=== PATIENT | male | born 1950 | race American Indian/Alaskan Native ===

== ENCOUNTER 2021-01-06 19:11 | Emergency (ER) | payer MEDICARE ==
[2021-01-06] MEDS ORDERED: Sodium Chloride 0.9% 2.5 ML Syringe FLUSH PRN (20:40)
[2021-01-06] MEDS ORDERED: Sodium Chloride 0.9% 10 ML Syringe FLUSH PRN (20:40)
[2021-01-06] MEDS ORDERED: Sodium Chloride 0.9% 1,000 ML IV ONE (20:41)
[2021-01-06 21:32] LABS: BLOOD UREA NITROGEN,BUN 38 mg/dL (7.0-18.0); CARBON DIOXIDE,CO2 29.4 mmol/L (21.0-32.0); CHLORIDE,CL 104 mmol/L (98-107); GLUCOSE RANDOM 201 mg/dL (74-106); POTASSIUM,K 4.5 mmol/L (3.5-5.1); SODIUM,NA 143 mmol/L (136-148)
[2021-01-06] MEDS ORDERED: Iopamidol 755 MG/ML 500 ML Multipack Bottle IVPUSH STA (23:01)
--- NOTE | 2021-01-06 23:15 | CT ---
Indication: Chest pain. Shortness of breath. Technique: Multiple contiguous axial images were obtained from the thoracic inlet through the upper abdomen after the intravenous administration of 100 cc Isovue 370. Please note that all CT scans at this facility use dose modulation, iterative reconstruction, and/or weight-based dosing when appropriate to reduce radiation dose to as low as reasonably achievable. Comparison: None Findings: The heart is mildly enlarged. No pericardial effusion is identified. No pulmonary embolism is identified. Aorta is normal in caliber. No mediastinal, hilar, or axillary lymphadenopathy is identified. Minimal patchy ground-glass opacities are identified. In the left lower lobe, calcified granuloma is identified. No infiltrate, pleural effusion, or pneumothorax is identified. The visualized portions of the liver, spleen, pancreas, adrenals, and kidneys are grossly normal. Degenerative changes of the spine are identified. No lytic or blastic lesions are identified. Impression: No evidence of pulmonary embolism. Only minimal ground-glass opacities identified within the lungs. Please note that all CT scans at this facility use dose modulation, iterative reconstruction, and/or weight-based dosing when appropriate to reduce radiation dose to as low as reasonably achievable. Dictated by Julienne Hankins MD @ 01/06/2021 11:13:02 PM (Electronically Signed)
[2021-01-06] MEDS ORDERED: methylPREDNISolone Sodium Succinate 125 MG/2 ML SDV IVPUSH ONE (23:33)
[2021-01-06] MEDS ORDERED: Albuterol/Ipratropium 3.0-0.5 MG/3 ML Neb Soln NEB ONE (23:33)
[2021-01-06] MEDS ORDERED: Codeine/guaiFENesin 10-100 MG/5 ML Syrup 5 ML Cup PO ONE (23:39)
--- NOTE | 2021-01-06 23:39 | EDM.PDOC ---
ED HPI GENERAL MEDICAL PROBLEM - General Chief Complaint: Chest Pain Stated Complaint: COVID POSITIVE, CAN'T BREATHE, CHEST PAINS Time Seen by Provider: 01/06/21 19:46 - History of Present Illness INITIAL COMMENTS - FREE TEXT/NARRATIVE: HISTORY AND PHYSICAL: History of present illness: This is a 70-year-old gentleman with a history significant for cardiomyopathy, hypertension, diabetes, chronic renal disease, status post pace maker/defibrillator, who presents ER today secondary to signs and symptoms of worsening coronavirus infection. Patient reports that he was diagnosed with Covid approximately 8 days ago with symptoms starting approximately 10 days ago. Patient reports that he has been doing fairly well since his diagnosis however he has been having increasing cough and feels short of breath when he is coughing. Patient denies any recent fevers, shakes, chills. Patient denies any nausea, vomiting, diarrhea, dysuria, frequency, urgency. Patient denies any chest pain or discomfort but does have increasing shortness of breath with coughing. Patient denies any hemoptysis. Patient denies any melena or bright red blood per rectum. Patient reports he does not utilize any oxygen at home. Review of systems: As per history of present illness and below otherwise all systems reviewed and negative. Past medical history: As per history of present illness and as reviewed below otherwise noncontributory. Surgical history: As per history of present illness and as reviewed below otherwise noncontributory. Social history: No reported history of drug abuse. Family history: As per history of present illness and as reviewed below otherwise noncontributory. Physical exam: This patient was seen and evaluated during the 2019 SARS-CoV-2 novel coronavirus pandemic period. Community viral transmission is ongoing at time of this encounter and the emergency department is operating under pandemic response procedures. Constitutional: Patient is oriented to person, place, and time. Appears well-developed and well-nourished. No distress. HEENT: Moist mucous membranes Head: Normocephalic and atraumatic Eyes: Right eye exhibits no discharge. Left eye exhibits no discharge. No scleral icterus Neck: Normal range of motion. No tracheal deviation present. Cardiovascular: Normal rate and regular rhythm. Pulmonary: Effort normal, no respiratory distress. Abdominal: No distention Musculoskeletal: Normal range of motion Neurologic: Alert and oriented to person, place and time. Skin: [place], warm and dry. Psychiatric: Normal mood and affect. Behavior is normal. Judgment and thought content normal. Nursing note and vital signs have been reviewed Patient has an expiratory wheezing on exam. Diagnostics: CTA reveals no evidence of PE. Patient does have evidence of Covid pneumonia on CAT scan. CBC/CMP/troponin within normal limits. Patient's BUN and creatinine are slightly elevated but appear to be within patient's baseline range. EKG: January 06, 2021 at 7:29 PM As interpreted by ER physician: Parmjit: Nonspecific ST-T wave abnormalities QRS axis of -90 degrees. No evidence of ST elevation IN Paced rhythm at 75. Therapeutics: DuoNeb x1 Solu-Medrol 125 mg IV Assessment and plan: 70-year-old gentleman who presents ER today secondary to increased shortness of breath with increasing coughing when he lays flat and tries to sleep. Patient reports that is when he starts feeling short of breath when he is lying flat and try to get to sleep and starts coughing. Patient's CTA of his chest reveals no evidence of PE but does show evidence of Covid inflammation in his lungs. Patient's EKG reveals no evidence of ST elevation IN but does show a paced rhythm. Patient has been given a DuoNeb here in the ED and does feel much improved. Patient will be discharged home with prescription for prednisone and instructions to follow-up with his doctor in the next 1 to 2 days at least by phone. Reassessment at the time of disposition demonstrates that the patient is in no acute distress. The patient has remained stable throughout the entire ED visit and is without objective evidence for acute process requiring urgent intervention or hospitalization. The patient is stable for discharge, counseling is provided as documented above, discussed symptomatic treatment and specific conditions for return. I have spoken with the patient/caregiver and discussed todays findings, in addition to providing specific details for the plan of care. Questions are answered and there is agreement with the plan. Definitive disposition and diagnosis as appropriate pending reevaluation and review of above. Generalized Pain Score (Numeric/FACES): 6 - Related Data Allergies Allergy/AdvReac Type Severity Reaction Status Date / Time shellfish derived Allergy Hives Verified 07/19/13 13:24 Home Meds: Home Meds Fexofenadine/Pseudoephedrine [Fexofenadine-PSE ER 180-240] 1 each PO DAILY PRN 07/19/13 [History] Fluticasone Propionate [Flonase] 16 gm NS DAILY PRN 07/19/13 [History] Levothyroxine [Synthroid] 137 mcg PO ACBRK 02/23/14 [History] traZODone HCl [Trazodone HCl] 50 mg PO BEDTIME PRN 02/24/14 [History] Apixaban [Eliquis] 1 tab PO BID 01/06/21 [History] Esomeprazole [NexIUM] 1 tab PO DAILY 01/06/21 [History] Sacubitril/Valsartan [Entresto 97 mg-103 mg Tablet] 1 tab PO DAILY 01/06/21 [History] Simvastatin 1 tab PO DAILY 01/06/21 [History] Torsemide 2 tab PO BID 01/06/21 [History] carvediloL [Carvedilol] 1.5 tab PO BID 01/06/21 [History] Past Medical History HEENT History: Reports: None Cardiovascular History: Reports: Afib, Cardiomyopathy Respiratory History: Reports: None Gastrointestinal History: Reports: None Musculoskeletal History: Reports: None Neurological History: Reports: None Psychiatric History: Reports: None Endocrine/Metabolic History: Reports: None Hematologic History: Reports: None Immunologic History: Reports: None Oncologic (Cancer) History: Reports: None Dermatologic History: Reports: None - Infectious Disease History Infectious Disease History: Reports: None - Past Surgical History Head Surgeries/Procedures: Reports: None HEENT Surgical History: Reports: None Cardiovascular Surgical History: Reports: AICD, Cardiac Ablation Oncologic Surgical History: Reports: None Social & Family History - Family History HEENT: Reports: None - Tobacco Use Tobacco Use Status *Q: Never Tobacco User - Caffeine Use Caffeine Use: Reports: Coffee - Recreational Drug Use Recreational Drug Use: No ED ROS GENERAL - Review of Systems Review Of Systems: See Below ED EXAM, GENERAL - Physical Exam Exam: See Below Course - Vital Signs Last Recorded V/S: Last Vital Signs Temp 97 F 01/06/21 21:25 Pulse 74 01/06/21 22:56 Resp 18 01/06/21 22:56 BP 111/74 01/06/21 22:56 Pulse Ox 96 01/06/21 22:56 - Orders/Labs/Meds Orders: Active Orders 24 hr Category Date Time Status Albuterol/Ipratropium [DuoNeb 3.0-0.5 MG/3 ML] Med 01/06/21 23:33 Once 3 ml NEB ONETIME ONE Sodium Chloride 0.9% [Saline Flush] Med 01/06/21 20:40 Active 10 ml FLUSH ASDIRECTED PRN Sodium Chloride 0.9% [Saline Flush] Med 01/06/21 20:40 Active 2.5 ml FLUSH ASDIRECTED PRN methylPREDNISolone Sod Succ [Solu-MEDROL] Med 01/06/21 23:33 Once 125 mg IVPUSH ONETIME ONE Saline Lock Insert [OM.PC] Stat Oth 01/06/21 20:40 Ordered Medication Orders Sodium Chloride (Sodium Chloride 0.9% 10 Ml Syringe) 10 ml FLUSH ASDIRECTED PRN PRN Reason: Keep Vein Open Last Admin: 01/06/21 21:07 Dose: 10 ml Documented by: ADILSON Sodium Chloride (Sodium Chloride 0.9% 2.5 Ml Syringe) 2.5 ml FLUSH ASDIRECTED PRN PRN Reason: Keep Vein Open Last Admin: 01/06/21 21:22 Dose: 2.5 ml Documented by: ADILSON Labs: Laboratory Tests 01/06/21 01/06/21 01/06/21 Range/Units 21:00 21:00 21:00 WBC 4.53 (4.0-11.0) K/uL RBC 4.87 (4.50-5.90) M/uL Hgb 15.9 (13.0-17.0) g/dL Hct 46.3 (38.0-50.0) % MCV 95.1 (80.0-98.0) fL MCH 32.6 H (27.0-32.0) pg MCHC 34.3 (31.0-37.0) g/dL RDW Std Deviation 46.1 (28.0-62.0) fl RDW Coeff of Yassine 13 (11.0-15.0) % Plt Count 155 (150-400) K/uL MPV 10.30 (7.40-12.00) fL Neut % (Auto) 62.3 (48.0-80.0) % Lymph % (Auto) 22.1 (16.0-40.0) % Josephine % (Auto) 14.1 (0.0-15.0) % Eos % (Auto) 1.3 (0.0-7.0) % Baso % (Auto) 0.2 (0.0-1.5) % Neut # (Auto) 2.8 (1.4-5.7) K/uL Lymph # (Auto) 1.0 (0.6-2.4) K/uL Josephine # (Auto) 0.6 (0.0-0.8) K/uL Eos # (Auto) 0.1 (0.0-0.7) K/uL Baso # (Auto) 0.0 (0.0-0.1) K/uL Nucleated RBC % 0.0 /100WBC Nucleated RBCs # 0 K/uL D-Dimer, Quantitative 0.19 (0.0-0.50) mg/L FEU Sodium 143 (136-148) mmol/L Potassium 4.5 (3.5-5.1) mmol/L Chloride 104 (98-107) mmol/L Carbon Dioxide 29.4 (21.0-32.0) mmol/L BUN 38 H (7.0-18.0) mg/dL Creatinine 1.9 H (0.8-1.3) mg/dL Est Cr Clr Drug Dosing 37.89 mL/min Estimated GFR (MDRD) 35.3 ml/min Glucose 201 H (74-106) mg/dL Calcium 8.3 L (8.5-10.1) mg/dL Total Bilirubin 0.4 (0.2-1.0) mg/dL AST 14 L (15-37) IU/L ALT 24 (14-63) IU/L Alkaline Phosphatase 61 (46-116) U/L Troponin I < 0.050 (0.000-0.056) ng/mL B-Natriuretic Peptide (<100) PG/ML Total Protein 7.3 (6.4-8.2) g/dL Albumin 3.4 (3.4-5.0) g/dL Globulin 3.9 (2.6-4.0) g/dL Albumin/Globulin Ratio 0.9 (0.9-1.6) 01/06/21 Range/Units 21:00 WBC (4.0-11.0) K/uL RBC (4.50-5.90) M/uL Hgb (13.0-17.0) g/dL Hct (38.0-50.0) % MCV (80.0-98.0) fL MCH (27.0-32.0) pg MCHC (31.0-37.0) g/dL RDW Std Deviation (28.0-62.0) fl RDW Coeff of Yassine (11.0-15.0) % Plt Count (150-400) K/uL MPV (7.40-12.00) fL Neut % (Auto) (48.0-80.0) % Lymph % (Auto) (16.0-40.0) % Josephine % (Auto) (0.0-15.0) % Eos % (Auto) (0.0-7.0) % Baso % (Auto) (0.0-1.5) % Neut # (Auto) (1.4-5.7) K/uL Lymph # (Auto) (0.6-2.4) K/uL Josephine # (Auto) (0.0-0.8) K/uL Eos # (Auto) (0.0-0.7) K/uL Baso # (Auto) (0.0-0.1) K/uL Nucleated RBC % /100WBC Nucleated RBCs # K/uL D-Dimer, Quantitative (0.0-0.50) mg/L FEU Sodium (136-148) mmol/L Potassium (3.5-5.1) mmol/L Chloride (98-107) mmol/L Carbon Dioxide (21.0-32.0) mmol/L BUN (7.0-18.0) mg/dL Creatinine (0.8-1.3) mg/dL Est Cr Clr Drug Dosing mL/min Estimated GFR (MDRD) ml/min Glucose (74-106) mg/dL Calcium (8.5-10.1) mg/dL Total Bilirubin (0.2-1.0) mg/dL AST (15-37) IU/L ALT (14-63) IU/L Alkaline Phosphatase (46-116) U/L Troponin I (0.000-0.056) ng/mL B-Natriuretic Peptide 226 H (<100) PG/ML Total Protein (6.4-8.2) g/dL Albumin (3.4-5.0) g/dL Globulin (2.6-4.0) g/dL Albumin/Globulin Ratio (0.9-1.6) Meds: Medications Generic Name Dose Route Start Last Admin Trade Name Freq PRN Reason Stop Dose Admin Sodium Chloride 10 ml 01/06/21 20:40 01/06/21 21:07 Sodium Chloride 0.9% 10 Ml Syringe FLUSH 10 ml ASDIRECTED PRN Administration Keep Vein Open Sodium Chloride 2.5 ml 01/06/21 20:40 01/06/21 21:22 Sodium Chloride 0.9% 2.5 Ml Syringe FLUSH 2.5 ml ASDIRECTED PRN Administration Keep Vein Open Discontinued Medications Generic Name Dose Route Start Last Admin Trade Name Freq PRN Reason Stop Dose Admin Sodium Chloride 1,000 mls @ 999 mls/hr 01/06/21 20:41 01/06/21 21:06 Normal Saline IV 01/06/21 21:41 999 mls/hr .Bolus ONE Administration Iopamidol 50 ml 01/06/21 23:01 01/06/21 23:02 Iopamidol 755 Mg/Ml 500 Ml Multipack Bottle IVPUSH 01/06/21 23:02 50 ml ONETIME STA Administration Departure - Departure Time of Disposition: 23:39 Disposition: Home, Self-Care 01 Condition: Good Clinical Impression: Pneumonia due to COVID-19 virus, Shortness of breath - Discharge Information Instructions: Shortness of Breath, Adult, [id number], 10 Things You Can Do to Manage Your COVID-19 Symptoms at Home - [facility] (10/26/2020) Referrals: PCP,None [Primary Care Provider] - Additional Instructions: You were seen and evaluated in the ER today secondary to shortness of breath related to your Covid infection. Your CT scan reveals no evidence of blood clots or aneurysms but does show some inflammation in your lungs consistent with inflammation from coronavirus. You have been given a DuoNeb here in the ED. You will also be given a dose of steroids and a prescription for prednisone to take at home. I will also write a prescription for Robitussin-AC which has codeine in it to help you with your cough at night. Please make an appointment see your family doctor in the next 1 to 2 days for reevaluation. The following information is given to patients seen in the emergency department who are being discharged to home. This information is to outline your options for follow-up care. We provide all patients seen in our emergency department with a follow-up referral. The need for follow-up, as well as the timing and circumstances, are variable depending upon the specifics of your emergency department visit. If you don't have a primary care physician on staff, we will provide you with a referral. We always advise you to contact your personal physician following an emergency department visit to inform them of the circumstance of the visit and for follow-up with them and/or the need for any referrals to a consulting specialist. The emergency department will also refer you to a specialist when appropriate. This referral assures that you have the opportunity for follow-up care with a specialist. All of these measure are taken in an effort to provide you with optimal care, which includes your follow-up. Under all circumstances we always encourage you to contact your private physician who remains a resource for coordinating your care. When calling for follow-up care, please make the office aware that this follow-up is from your recent emergency room visit. If for any reason you are refused follow-up, please contact the [facility] Emergency Department at and asked to speak to the emergency department charge nurse. [facility] [address] [place] [address] [id number] [address] Sepsis Event Note (ED) - Focused Exam Vital Signs: Vital Signs Temp Pulse Resp BP Pulse Ox 01/06/21 22:56 74 18 111/74 96 01/06/21 21:25 97 F 75 18 104/65 97 01/06/21 19:16 97.6 F 70 20 103/63 97 - My Orders Last 24 Hours: My Active Orders 01/06/21 20:40 Sodium Chloride 0.9% [Saline Flush] 10 ml FLUSH ASDIRECTED PRN Sodium Chloride 0.9% [Saline Flush] 2.5 ml FLUSH ASDIRECTED PRN Saline Lock Insert [OM.PC] Stat 01/06/21 23:33 Albuterol/Ipratropium [DuoNeb 3.0-0.5 MG/3 ML] 3 ml NEB ONETIME ONE methylPREDNISolone Sod Succ [Solu-MEDROL] 125 mg IVPUSH ONETIME ONE - Assessment/Plan Last 24 Hours: My Active Orders 01/06/21 20:40 Sodium Chloride 0.9% [Saline Flush] 10 ml FLUSH ASDIRECTED PRN Sodium Chloride 0.9% [Saline Flush] 2.5 ml FLUSH ASDIRECTED PRN Saline Lock Insert [OM.PC] Stat 01/06/21 23:33 Albuterol/Ipratropium [DuoNeb 3.0-0.5 MG/3 ML] 3 ml NEB ONETIME ONE methylPREDNISolone Sod Succ [Solu-MEDROL] 125 mg IVPUSH ONETIME ONE
[2021-01-07 00:05] VITALS: BP 112/67; PULSE 75
== END 2021-01-07 00:04 | disposition home or self-care (01) ==
LOC: MW.ED 19:11
DX: U07.1 COVID-19 (principal); J12.82 Pneumonia due to coronavirus disease 2019; I12.9 Hypertensive chronic kidney disease with stage 1 through stage 4 chronic kidney disease, or unspecified chronic kidney disease; E11.22 Type 2 diabetes mellitus with diabetic chronic kidney disease; N18.9 Chronic kidney disease, unspecified; I48.91 Unspecified atrial fibrillation; Z91.013 Allergy to seafood; Z79.01 Long term (current) use of anticoagulants; Z79.899 Other long term (current) drug therapy
CPT/HCPCS: 36415; 71275; 80053; 83880; 84484; 85025; 85379; 93005; 96374; 99285; A9270; J2930; J7030; Q9967; J7620-GY

== ENCOUNTER 2021-01-10 09:02 | Inpatient (IN) | payer MEDICARE ==
[2021-01-10] MEDS ORDERED: Aspirin 81 MG Tab.Chew PO ONE (09:06)
[2021-01-10] MEDS ORDERED: Sodium Chloride 0.9% 10 ML Syringe FLUSH PRN (09:07)
[2021-01-10] MEDS ORDERED: Sodium Chloride 0.9% 2.5 ML Syringe FLUSH PRN (09:07)
[2021-01-10 09:59] LABS: BLOOD UREA NITROGEN,BUN 53 mg/dL (7.0-18.0); CARBON DIOXIDE,CO2 27.3 mmol/L (21.0-32.0); CHLORIDE,CL 100 mmol/L (98-107); GLUCOSE RANDOM 410 mg/dL (74-106); SODIUM,NA 137 mmol/L (136-148)
--- NOTE | 2021-01-10 10:07 | CR ---
INDICATION: Chest Pain COMPARISON: CT angio chest January 06, 2021 and chest radiograph July 19, 2013 FINDINGS AND IMPRESSION: Redemonstration of left chest AICD. There are low lung volumes bilaterally. Mild cardiomegaly with crowding of the pulmonary vasculature which may be in part due to low lung volumes. There is no pulmonary edema. Redemonstration of mild consolidation within the right lung base may represent atelectasis. Mild patchy airspace disease in the left lower lobe was better seen on comparison chest CT. There is probably slight ground-glass opacity within the right lung base which may represent atelectasis versus pneumonia. Dictated by Tressa Baldwin MD @ 01/10/2021 10:05:55 AM (Electronically Signed)
[2021-01-10] MEDS ORDERED: Albuterol/Ipratropium 3.0-0.5 MG/3 ML Neb Soln NEB ONE ×4 (10:32→12:14)
[2021-01-10] MEDS ORDERED: Lactated Ringers 1,000 ML IV SCH (11:00)
[2021-01-10] MEDS ORDERED: Magnesium Sulfate (4.06 MEQ/ML) 5 GM/10 ML SDV IV STA (12:12)
[2021-01-10] MEDS ORDERED: Magnesium Sulfate/Water 50 ML IV ONE (12:15)
--- NOTE | 2021-01-10 12:54 | PCM.EKG ---
#1 Interpretation EKG Date: 01/10/21 Time: 09:05 Rhythm: Other (vetricular paced rhythm) Rate (Beats/Min): 75 Comparison: No Change (01/06/21) EKG Interpretation Comments: Ventricular Paced Rhythm
[2021-01-10] MEDS ORDERED: Dexamethasone 4 MG/ML SDV IVPUSH ONE (13:06)
[2021-01-10] MEDS ORDERED: Albuterol 0.083% 2.5 MG/3 ML Neb Soln ONE (15:44)
--- NOTE | 2021-01-10 15:58 | EDM.PDOC ---
ED HPI GENERAL MEDICAL PROBLEM - General Chief Complaint: Chest Pain Stated Complaint: SOB, CHEST PAIN Time Seen by Provider: 01/10/21 09:08 - History of Present Illness INITIAL COMMENTS - FREE TEXT/NARRATIVE: CHIEF COMPLAINT(S): Chest discomfort and shortness of breath HISTORY OF PRESENT ILLNESS: This is a 70-year-old man with a past medical history of end-stage heart failure who was offered LVAD versus heart transplant who refused any recent diagnosis of COVID-19 who comes to the emergency department with a chief complaint of chest discomfort and shortness of breath. Patient states that he was recently diagnosed with COVID-19. He states that he feels some shortness of breath and cough. He states that he does have a history of asthma and has been using a nebulizer treatment at home however it does not seem to be helping. He states that he feels chest discomfort throughout his entire anterior chest which he describes as tightening. He denies any productive cough, chest pain, syncope. He denies any recent travel, recent surgery or prior history of DVT or PE. He states that he comes to the emergency department for continued shortness of breath. REVIEW OF SYSTEMS: Constitutional: Denies fever, chills. Eyes: Denies eye pain Ears, Nose, Mouth, & Throat: Denies earache Cardiovascular: Positive for chest discomfort Respiratory: Positive for shortness of breath and nonproductive cough Gastrointestinal: Denies Nausea, vomiting, diarrhea, hematochezia. Genitourinary: Denies hematuria Skin:Denies a rash MSK: Denies joint pain Neurological: Denies blurred vision Psychiatric: Denies depression PAST MEDICAL HISTORY: As per history of present illness and as reviewed below otherwise noncontributory. SURGICAL HISTORY: As per history of present illness and as reviewed below otherwise noncontributory. SOCIAL HISTORY: As per history of present illness and as reviewed below otherwise noncontributory. FAMILY HISTORY: As per history of present illness and as reviewed below otherwise noncontributory. EXAMINATION OF ORGAN SYSTEMS/BODY AREAS: Constitutional: Blood pressure is 106/60, heart rate 71, respiratory rate 16 with an oxygen saturation of 95% on room air. Temperature 36.2. General: Elderly man who is in a moderate amount of respiratory distress Psychiatric: Appropriate mood and affect. Eyes: No scleral icterus or conjunctival erythema ENMT: Dry mucous membranes. No pharyngeal erythema. No stridor, drooling, trismus Cardiovascular: Regular, rate, and rhythm. No gallops, murmurs, or rubs. Bilateral upper extremity pulses symmetric and intact. No peripheral edema. No JVD. Respiratory: The patient is tachypneic with bilateral inspiratory and expiratory wheezing. Wheezing can be heard audibly. Speaking in full sentences. No crackles noted. Gastrointestinal: Soft, non-tender, non-distended. Normoactive bowel sounds Genitourinary: No suprapubic tenderness Musculoskeletal: Normal range of motion. Skin: No lesions or abrasions. Neurological: Alert, GCS 15 MEDICAL DECISION MAKING AND COURSE IN THE ED WITH INTERPRETATION/REVIEW OF DIAGNOSTIC STUDIES: This is a 70-year-old man with a past medical history of end-stage heart failure, asthma, and recent diagnosis of COVID-19 who comes to the emergency department with continued shortness of breath and nonproductive cough with some chest discomfort who has some inspiratory and expiratory wheezing who is tachypneic. The patient has been on steroid therefore we will forego steroids at this time. We did obtain an EKG which was unremarkable and unchanged from prior. We will provide the patient with 3 DuoNeb treatments, dexamethasone 6 mg IV given the COVID-19 and 2 g of magnesium. We will reevaluate after this. Will obtain a cardiac work-up including CBC, CMP, BNP, Covid and a chest x-ray. At this time differential does include pneumonia, ACS, heart failure exacerbation, asthma exacerbation. We will reevaluate after DuoNeb treatments. Cardiac monitoring at this time did reveal sinus rhythm and pulse oximetry with good waveform was 94 to 95% on room air. Laboratory: CBC is unremarkable. CMP reveals elevated BUN of 53 and a creatinine of 1.8. Hyperglycemia 410 likely secondary to demargination secondary to steroid use, hypocalcemia at 7.9. Troponin is negative. BNP is elevated at 552 which is not much more than prior. Covid is positive. The radiological images were viewed by myself along with reading the report from the radiologist. Chest x-ray reveals redemonstration of left chest AICD. Low lung volumes bilaterally. Mild cardiomegaly with crowding of the pulmonary vasculature but there is no pulmonary edema. Redemonstration of mild consolidation within the right lung base. Mild patchy airspace disease in the left lower lobe. On reevaluation after DuoNeb treatments the patient continued to wheeze and appeared to be tachypneic. His pulse oximetry continued to remain stable. Given the patient's work of breathing and wheezing I did perform a bedside cardiac ultrasound to evaluate for any right heart strain, pulmonary edema. Bedside cardiac ultrasound with lung 2 views of the heart were obtained there was no evidence of pericardial effusion. Ejection fraction is significantly reduced. There was no evidence of right heart strain. There were no B-lines bilaterally. Given that there were no B-lines bilaterally, given the acute kidney injury I do believe the patient is volume down. We will provide the patient with 1 L of lactated Ringer's bolus. I do not believe this is a heart failure exacerbation is likely secondary to COVID-19 pneumonia and asthma exacerbation. At this time I did discuss with patient I would like to place him on BiPAP for his work of breathing. He was amenable to this plan. On BiPAP the patient's breathing appeared to be more comfortable and was no longer in any distress. ABG prior to placement of BiPAP was unremarkable. We did continue with BiPAP administration however we do not have any ICU beds at this time. Therefore we have provided the patient with an additional albuterol nebulization via BiPAP and we will reevaluate and see if the patient does well on a trial off of BiPAP onto high flow nasal cannula. The patient was able to tolerate transition to high flow nasal cannula. The patient still had significant wheezing however his oxygenation was continued to be normal. On high flow nasal cannula the patient's work of breathing was significantly reduced as compared to BiPAP. Therefore at this time I did discuss with patient would like to admit him to the hospital. He was amenable to this plan. We did have a lengthy discussion the patient is DNR, DNI and does not want any further intervention including LVAD or cardiac transplant. He is not requesting transfer. I did contact hospitalist who accepted the patient for admission DISPOSITION: The patient was admitted to the hospital in stable yet serious condition CONDITION: Serious PROCEDURES: Cardiac monitoring interpretation, pulse oximetry interpretation, bedside cardiac ultrasound FINAL IMPRESSION(S)/DIAGNOSES: 1. Acute COVID-19 pneumonia 2. Acute respiratory distress secondary to asthma exacerbation and COVID-19 pneumonia 3. Acute asthma exacerbation Critical Care Procedure Note Authorized and performed by: Alejandro Hankins M.D. Critical Care Time: 90 minutes Due to a high probability of clinically significant, life threatening deterioration, the patient required my highest level of preparedness to intervene emergently and I personally spent this critical care time directly and personally managing the patient. This critical care time included obtaining a history, examining the patient, pulse oximetry; ordering and review of studies; arranging urgent treatment with development of a management plan; evaluation of a patients reponse to treatment; frequent assessment; and discussions with other providers. This critical care time was performed to assess and manage the high probability of imminent, life threatening deterioration that could result in multiorgan failure. It was exclusive of separate billable procedures and treating other patients. Please see MDM section and rest of the note for further information on patient assessment and treatment. Please see MDM section and rest of the note for further information on patient assessment and treatment. Alejandro Hankins M.D. Left Chest Pain Score (Numeric/FACES): 6 - Related Data Allergies Allergy/AdvReac Type Severity Reaction Status Date / Time shellfish derived Allergy Hives Verified 01/10/21 19:02 Home Meds: Home Meds Fexofenadine/Pseudoephedrine [Fexofenadine-PSE ER 180-240] 1 each PO DAILY PRN 07/19/13 [History] Fluticasone Propionate [Flonase] 16 gm NS DAILY PRN 07/19/13 [History] Levothyroxine [Synthroid] 137 mcg PO ACBRK 02/23/14 [History] traZODone HCl [Trazodone HCl] 50 mg PO BEDTIME PRN 02/24/14 [History] Apixaban [Eliquis] 1 tab PO BID 01/06/21 [History] Codeine/guaiFENesin [guaiFENesin-Codeine Syrup] 10 ml PO Q6H PRN #240 ml 01/06/21 [Rx] Esomeprazole [NexIUM] 1 tab PO DAILY 01/06/21 [History] Sacubitril/Valsartan [Entresto 97 mg-103 mg Tablet] 1 tab PO DAILY 01/06/21 [History] Simvastatin 1 tab PO DAILY 01/06/21 [History] Torsemide 2 tab PO BID 01/06/21 [History] carvediloL [Carvedilol] 1.5 tab PO BID 01/06/21 [History] predniSONE [Prednisone] 50 mg PO DAILY #5 tablet 01/06/21 [Rx] predniSONE [Prednisone] 1 dose PO DAILY 01/10/21 [History] Past Medical History HEENT History: Reports: None Cardiovascular History: Reports: Afib, Cardiomyopathy Respiratory History: Reports: None Gastrointestinal History: Reports: None Musculoskeletal History: Reports: None Neurological History: Reports: None Psychiatric History: Reports: None Endocrine/Metabolic History: Reports: None Hematologic History: Reports: None Immunologic History: Reports: None Oncologic (Cancer) History: Reports: None Dermatologic History: Reports: None - Infectious Disease History Infectious Disease History: Reports: None - Past Surgical History Head Surgeries/Procedures: Reports: None HEENT Surgical History: Reports: None Cardiovascular Surgical History: Reports: AICD, Cardiac Ablation Oncologic Surgical History: Reports: None Social & Family History - Family History HEENT: Reports: None - Tobacco Use Tobacco Use Status *Q: Never Tobacco User - Caffeine Use Caffeine Use: Reports: Coffee - Recreational Drug Use Recreational Drug Use: No ED ROS GENERAL - Review of Systems Review Of Systems: See Below ED EXAM, GENERAL - Physical Exam Exam: See Below Course - Vital Signs Last Recorded V/S: Last Vital Signs Temp 36.8 C 01/10/21 16:14 Pulse 77 01/10/21 16:45 Resp 18 01/10/21 16:45 BP 107/68 01/10/21 16:45 Pulse Ox 95 01/10/21 16:45 - Orders/Labs/Meds Orders: Active Orders 24 hr Category Date Time Status Bladder Scan [RC] ASDIRECTED Care 01/10/21 11:16 Active Cardiac Monitoring [RC] Q8H Care 01/10/21 09:07 Active Pulse Oximetry [RC] ASDIRECTED Care 01/10/21 09:07 Active RT Aerosol Therapy [RC] ASDIRECTED Care 01/10/21 10:32 Active RT Aerosol Therapy [RC] ASDIRECTED Care 01/10/21 11:17 Active RT Aerosol Therapy [RC] ASDIRECTED Care 01/10/21 12:14 Active Lactated Ringers [Ringers, Lactated] 1,000 ml Med 01/10/21 11:00 Active IV ASDIRECTED Sodium Chloride 0.9% [Saline Flush] Med 01/10/21 09:07 Active 10 ml FLUSH ASDIRECTED PRN Sodium Chloride 0.9% [Saline Flush] Med 01/10/21 09:07 Active 2.5 ml FLUSH ASDIRECTED PRN Saline Lock Insert [OM.PC] Stat Oth 01/10/21 09:07 Ordered Medication Orders Acetaminophen (Acetaminophen 325 Mg Tab) 650 mg PO Q4H PRN PRN Reason: Pain (Mild 1-3)/fever Albuterol/Ipratropium (Albuterol/Ipratropium 3.0-0.5 Mg/3 Ml Neb Soln) 3 ml NEB Q4HRRT [facility] Apixaban (Apixaban 5 Mg Tab) 5 mg PO BID [facility] Carvedilol (Carvedilol 12.5 Mg Tab) 18.75 mg PO BID [facility] Dexamethasone (Dexamethasone 4 Mg Tab) 6 mg PO DAILY [facility] Fluticasone Propionate (Fluticasone Propionate Nasal [place] 16 Gm Bottle) 16 gm NASBOTH DAILY PRN PRN Reason: Nasal Dryness Guaifenesin/Codeine Phosphate (Codeine/Guaifenesin 10-100 Mg/5 Ml Syrup 5 Ml Cup) 10 ml PO Q6H PRN PRN Reason: Cough Lactated Ringer's (Ringers, Lactated) 1,000 mls @ 999 mls/hr IV ASDIRECTED [facility] Last Admin: 01/10/21 11:04 Dose: 999 mls/hr Documented by: SCHOLAC Levofloxacin/Dextrose 750 mg/ (Premix) 150 mls @ 100 mls/hr IV Q24H [facility] Levothyroxine Sodium (Levothyroxine 50 Mcg Tab) 137 mcg PO ACBRK [facility] Non-Formulary Medication (Esomeprazole [Nexium]) 1 tab PO DAILY [facility] Non-Formulary Medication (Fexofenadine/Pseudoephedrine [Fexofenadine-Pse Er 180- 240]) 1 each PO DAILY PRN PRN Reason: Allergies Simvastatin (Simvastatin 40 Mg Tab) 40 mg PO DAILY [facility] Sodium Chloride (Sodium Chloride 0.9% 10 Ml Syringe) 10 ml FLUSH ASDIRECTED PRN PRN Reason: Keep Vein Open Last Admin: 01/10/21 10:49 Dose: 10 ml Documented by: SCHOLAC Sodium Chloride (Sodium Chloride 0.9% 2.5 Ml Syringe) 2.5 ml FLUSH ASDIRECTED PRN PRN Reason: Keep Vein Open Last Admin: 01/10/21 10:49 Dose: 2.5 ml Documented by: SCHOLAC Torsemide (Torsemide 20 Mg Tab) 40 mg PO BID [facility] Trazodone HCl (Trazodone 50 Mg Tab) 50 mg PO BEDTIME PRN PRN Reason: Sleep Labs: Laboratory Tests 01/10/21 01/10/21 01/10/21 Range/Units 09:12 09:12 09:12 WBC 10.41 (4.0-11.0) K/uL RBC 4.48 L (4.50-5.90) M/uL Hgb 14.7 (13.0-17.0) g/dL Hct 42.7 (38.0-50.0) % MCV 95.3 (80.0-98.0) fL MCH 32.8 H (27.0-32.0) pg MCHC 34.4 (31.0-37.0) g/dL RDW Std Deviation 46.3 (28.0-62.0) fl RDW Coeff of Yassine 13 (11.0-15.0) % Plt Count 190 (150-400) K/uL MPV 10.50 (7.40-12.00) fL Neut % (Auto) 81.0 H (48.0-80.0) % Lymph % (Auto) 8.4 L (16.0-40.0) % Young % (Auto) 10.5 (0.0-15.0) % Eos % (Auto) 0.1 (0.0-7.0) % Baso % (Auto) 0.0 (0.0-1.5) % Neut # (Auto) 8.4 H (1.4-5.7) K/uL Lymph # (Auto) 0.9 (0.6-2.4) K/uL Young # (Auto) 1.1 H (0.0-0.8) K/uL Eos # (Auto) 0.0 (0.0-0.7) K/uL Baso # (Auto) 0.0 (0.0-0.1) K/uL Nucleated RBC % 0.0 /100WBC Nucleated RBCs # 0 K/uL ABG pH (7.35-7.45) ABG pCO2 (35-45) mmHG ABG pO2 (80-105) mmHG ABG HCO3 (22-26) mEq/L ABG Total CO2 (23-27) mmol/L ABG Base Excess (-2.0-3.0) Sodium 137 (136-148) mmol/L Potassium 4.0 (3.5-5.1) mmol/L Chloride 100 (98-107) mmol/L Carbon Dioxide 27.3 (21.0-32.0) mmol/L BUN 53 H (7.0-18.0) mg/dL Creatinine 1.8 H (0.8-1.3) mg/dL Est Cr Clr Drug Dosing 39.99 mL/min Estimated GFR (MDRD) 37.6 ml/min Glucose 410 H (74-106) mg/dL Calcium 7.9 L (8.5-10.1) mg/dL Magnesium 2.1 (1.8-2.4) mg/dL Total Bilirubin 0.5 (0.2-1.0) mg/dL AST 28 (15-37) IU/L ALT 48 (14-63) IU/L Alkaline Phosphatase 77 (46-116) U/L Troponin I < 0.050 (0.000-0.056) ng/mL B-Natriuretic Peptide (<100) PG/ML Total Protein 6.8 (6.4-8.2) g/dL Albumin 3.1 L (3.4-5.0) g/dL Globulin 3.7 (2.6-4.0) g/dL Albumin/Globulin Ratio 0.8 L (0.9-1.6) SARS-CoV-2 RNA (GOPAL) POSITIVE H (NEGATIVE) 01/10/21 01/10/21 Range/Units 09:12 12:25 WBC (4.0-11.0) K/uL RBC (4.50-5.90) M/uL Hgb (13.0-17.0) g/dL Hct (38.0-50.0) % MCV (80.0-98.0) fL MCH (27.0-32.0) pg MCHC (31.0-37.0) g/dL RDW Std Deviation (28.0-62.0) fl RDW Coeff of Yassine (11.0-15.0) % Plt Count (150-400) K/uL MPV (7.40-12.00) fL Neut % (Auto) (48.0-80.0) % Lymph % (Auto) (16.0-40.0) % Young % (Auto) (0.0-15.0) % Eos % (Auto) (0.0-7.0) % Baso % (Auto) (0.0-1.5) % Neut # (Auto) (1.4-5.7) K/uL Lymph # (Auto) (0.6-2.4) K/uL Young # (Auto) (0.0-0.8) K/uL Eos # (Auto) (0.0-0.7) K/uL Baso # (Auto) (0.0-0.1) K/uL Nucleated RBC % /100WBC Nucleated RBCs # K/uL ABG pH 7.46 H (7.35-7.45) ABG pCO2 39 (35-45) mmHG ABG pO2 71 L (80-105) mmHG ABG HCO3 28 H (22-26) mEq/L ABG Total CO2 24.1 (23-27) mmol/L ABG Base Excess 3.4 H (-2.0-3.0) Sodium (136-148) mmol/L Potassium (3.5-5.1) mmol/L Chloride (98-107) mmol/L Carbon Dioxide (21.0-32.0) mmol/L BUN (7.0-18.0) mg/dL Creatinine (0.8-1.3) mg/dL Est Cr Clr Drug Dosing mL/min Estimated GFR (MDRD) ml/min Glucose (74-106) mg/dL Calcium (8.5-10.1) mg/dL Magnesium (1.8-2.4) mg/dL Total Bilirubin (0.2-1.0) mg/dL AST (15-37) IU/L ALT (14-63) IU/L Alkaline Phosphatase (46-116) U/L Troponin I (0.000-0.056) ng/mL B-Natriuretic Peptide 552 H (<100) PG/ML Total Protein (6.4-8.2) g/dL Albumin (3.4-5.0) g/dL Globulin (2.6-4.0) g/dL Albumin/Globulin Ratio (0.9-1.6) SARS-CoV-2 RNA (GOPAL) (NEGATIVE) Meds: Medications Generic Name Dose Route Start Last Admin Trade Name Freq PRN Reason Stop Dose Admin Acetaminophen 650 mg 01/10/21 17:59 Acetaminophen 325 Mg Tab PO Q4H PRN Pain (Mild 1-3)/fever Albuterol/Ipratropium 3 ml 01/10/21 22:00 Albuterol/Ipratropium 3.0-0.5 Mg/3 Ml Neb Soln NEB Q4HRRT [facility] Apixaban 5 mg 01/10/21 21:00 Apixaban 5 Mg Tab PO BID [facility] Carvedilol 18.75 mg 01/10/21 21:00 Carvedilol 12.5 Mg Tab PO BID [facility] Dexamethasone 6 mg 01/11/21 09:00 Dexamethasone 4 Mg Tab PO DAILY [facility] Fluticasone Propionate 16 gm 01/10/21 18:07 Fluticasone Propionate Nasal [place] 16 Gm Bottle NASBOTH DAILY PRN Nasal Dryness Guaifenesin/Codeine Phosphate 10 ml 01/10/21 18:07 Codeine/Guaifenesin 10-100 Mg/5 Ml Syrup 5 Ml Cup PO Q6H PRN Cough Lactated Ringer's 1,000 mls @ 999 mls/hr 01/10/21 11:00 01/10/21 11:04 Ringers, Lactated IV 999 mls/hr ASDIRECTED [facility] Administration Levofloxacin/Dextrose 750 mg/ 150 mls @ 100 mls/hr 01/10/21 18:15 Premix IV Q24H [facility] Levothyroxine Sodium 137 mcg 01/11/21 07:30 Levothyroxine 50 Mcg Tab PO ACBRK [facility] Non-Formulary Medication 1 tab 01/11/21 09:00 Esomeprazole [Nexium] PO DAILY [facility] Non-Formulary Medication 1 each 01/10/21 18:07 Fexofenadine/Pseudoephedrine [Fexofenadine-Pse Er 180-240] PO DAILY PRN Allergies Simvastatin 40 mg 01/11/21 09:00 Simvastatin 40 Mg Tab PO DAILY [facility] Sodium Chloride 10 ml 01/10/21 09:07 01/10/21 10:49 Sodium Chloride 0.9% 10 Ml Syringe FLUSH 10 ml ASDIRECTED PRN Administration Keep Vein Open Sodium Chloride 2.5 ml 01/10/21 09:07 01/10/21 10:49 Sodium Chloride 0.9% 2.5 Ml Syringe FLUSH 2.5 ml ASDIRECTED PRN Administration Keep Vein Open Torsemide 40 mg 01/10/21 21:00 Torsemide 20 Mg Tab PO BID [facility] Trazodone HCl 50 mg 01/10/21 18:07 Trazodone 50 Mg Tab PO BEDTIME PRN Sleep Discontinued Medications Generic Name Dose Route Start Last Admin Trade Name Ashu PRN Reason Stop Dose Admin Albuterol Confirm 01/10/21 15:44 01/10/21 15:45 Albuterol 0.083% 2.5 Mg/3 Ml Neb Soln Administered 01/10/21 15:45 2.5 mg Dose Administration 2.5 mg .ROUTE .STK-MED ONE Albuterol/Ipratropium 3 ml 01/10/21 10:32 01/10/21 10:49 Albuterol/Ipratropium 3.0-0.5 Mg/3 Ml Neb Soln NEB 01/10/21 10:33 3 ml ONETIME ONE Administration Albuterol/Ipratropium 3 ml 01/10/21 11:17 01/10/21 11:21 Albuterol/Ipratropium 3.0-0.5 Mg/3 Ml Neb Soln NEB 01/10/21 11:18 3 ml ONETIME ONE Administration Albuterol/Ipratropium 3 ml 01/10/21 12:14 01/10/21 12:39 Albuterol/Ipratropium 3.0-0.5 Mg/3 Ml Neb Soln NEB 01/10/21 12:15 3 ml ONETIME ONE Administration Albuterol/Ipratropium 3 ml 01/10/21 12:14 01/10/21 12:39 Albuterol/Ipratropium 3.0-0.5 Mg/3 Ml Neb Soln NEB 01/10/21 12:15 3 ml ONETIME ONE Administration Aspirin 324 mg 01/10/21 09:06 01/10/21 09:17 Aspirin 81 Mg Tab.Chew PO 01/10/21 09:07 324 mg ONETIME ONE Administration Dexamethasone 6 mg 01/10/21 13:06 01/10/21 13:14 Dexamethasone 4 Mg/Ml Sdv IVPUSH 01/10/21 13:07 6 mg ONETIME ONE Administration Magnesium Sulfate 50 mls @ 100 mls/hr 01/10/21 12:15 01/10/21 12:39 Magnesium Sulfate In Water 2 Gm/50 Ml IV 01/10/21 12:44 100 mls/hr NOW ONE Administration Departure - Departure Time of Disposition: 16:37 Disposition: Admitted As Inpatient 67 Condition: Fair Clinical Impression: Asthma exacerbation, COVID, CHRIS (acute kidney injury) - Discharge Information Sepsis Event Note (ED) - Focused Exam Vital Signs: Vital Signs Temp Pulse Resp BP Pulse Ox 01/10/21 16:14 36.8 C 82 20 111/67 93 L 01/10/21 15:53 74 20 105/63 94 L 01/10/21 15:01 82 102/66 93 L 01/10/21 15:00 36.8 C 78 18 103/68 93 L 01/10/21 14:13 84 20 102/69 96 01/10/21 13:35 36.8 C 78 18 105/66 95 01/10/21 13:20 36.8 C 71 18 101/62 94 L 01/10/21 12:45 36.8 C 91 20 97/54 L 94 L 01/10/21 12:11 36.8 C 86 18 93/52 L 94 L 01/10/21 12:03 36.8 C 84 20 87/57 L 95 01/10/21 11:07 73 96/60 94 L 01/10/21 10:09 81 102/59 L 94 L 01/10/21 09:41 36.8 C 80 20 96/52 L 94 L 01/10/21 09:21 36.2 C 71 16 106/60 95 - My Orders Last 24 Hours: My Active Orders 01/10/21 09:07 Cardiac Monitoring [RC] Q8H Pulse Oximetry [RC] ASDIRECTED Sodium Chloride 0.9% [Saline Flush] 10 ml FLUSH ASDIRECTED PRN Sodium Chloride 0.9% [Saline Flush] 2.5 ml FLUSH ASDIRECTED PRN Saline Lock Insert [OM.PC] Stat 01/10/21 10:32 RT Aerosol Therapy [RC] ASDIRECTED 01/10/21 11:00 Lactated Ringers [Ringers, Lactated] 1,000 ml IV ASDIRECTED 01/10/21 11:16 Bladder Scan [RC] ASDIRECTED 01/10/21 11:17 RT Aerosol Therapy [RC] ASDIRECTED 01/10/21 12:14 RT Aerosol Therapy [RC] ASDIRECTED - Assessment/Plan Last 24 Hours: My Active Orders 01/10/21 09:07 Cardiac Monitoring [RC] Q8H Pulse Oximetry [RC] ASDIRECTED Sodium Chloride 0.9% [Saline Flush] 10 ml FLUSH ASDIRECTED PRN Sodium Chloride 0.9% [Saline Flush] 2.5 ml FLUSH ASDIRECTED PRN Saline Lock Insert [OM.PC] Stat 01/10/21 10:32 RT Aerosol Therapy [RC] ASDIRECTED 01/10/21 11:00 Lactated Ringers [Ringers, Lactated] 1,000 ml IV ASDIRECTED 01/10/21 11:16 Bladder Scan [RC] ASDIRECTED 01/10/21 11:17 RT Aerosol Therapy [RC] ASDIRECTED 01/10/21 12:14 RT Aerosol Therapy [RC] ASDIRECTED
[2021-01-10] MEDS ORDERED: Acetaminophen 325 MG Tab PO PRN (17:59)
[2021-01-10] MEDS ORDERED: FEXOFENADINE PO PRN (18:07)
[2021-01-10] MEDS ORDERED: Codeine/guaiFENesin 10-100 MG/5 ML Syrup 5 ML Cup PO PRN (18:07)
[2021-01-10] MEDS ORDERED: PSEUDOEPHEDRINE PO PRN (18:07)
[2021-01-10] MEDS ORDERED: [UNRECOGNIZED DRUG - OTHER] PO PRN (18:07)
[2021-01-10] MEDS ORDERED: Fluticasone Propionate Nasal Spray 16 GM Bottle NASBOTH PRN (18:07)
[2021-01-10] MEDS ORDERED: traZODone 50 MG Tab PO PRN (18:07)
[2021-01-10] MEDS ORDERED: Levofloxacin/Dextrose 5%-Water 750 MG in Premix Bag 1 BAG IV SCH ×2 (18:15→21:30)
--- NOTE | 2021-01-10 18:52 | PCM.HP.2 ---
<Jude Urias - Last Filed: 01/10/21 20:00> H&P History of Present Illness - General Date of Service: 01/10/21 Admit Problem/Dx: Admission Diagnosis/Problem Admission Diagnosis/Problem Hypoxia - History of Present Illness Initial Comments - Free Text/Narative: The patient is a 70-year-old male, on day 1 of service, with a significant past medical history of atrial fibrillation, cardiomyopathy, CHF, who was admitted to the medical floor for COVID-19 pneumonia and CHRIS. The patie nt states that 12/30 he was diagnosed with COVID-19 pneumonia. Two to three days before being diagnosed, he developed shortness of breath, productive cough characteristic of clear sputum, and fevers. He denies any diarrhea, loss of taste or smell. He came to the emergency room this morning because he had chest pain on the left side which was intermittent, 7 out of 10 in intensity, aching in nature, and nonradiating. The patient states that due to his past medical history, it is usual for him to have symptoms of shortness of breath, cough, and chest discomfort. With respect to the patient's social history, he denies smoking cigarettes, using recreational drugs, and alcohol consumption. He had a chest x-ray done here to the hospital that showed an automatic implantable cardiac defibrillator on the left side, as well as ground glass opacities within the right lung characteristic of atelectasis versus pneumonia. He also had a EKG done which showed ventricular paced rhythm. He had a CBC done which showed a white blood cell 10.14, hemoglobin of 14.7, hematocrit of 42.7, and platelets of 190. He also had a CMP done which showed a sodium of 137, potassium of 4.0, chloride of 100, carbon dioxide of 27.3, BUN of 53, creatinine of 1.8, AST of 28, and ALT of 48. His BNP is 552 His ABGs revealed a pH of 7.46, PCO2 of 39, PO2 of 71, and HCO3 of 28. In the emergency room he was given dexamethasone 6 mg via IV route once, duo nebs once 3 times, aspirin 324 mg once, lactated Ringer's 1 L bolus, and was placed on BiPAP saturating 95% with FiO2 of 21. Once he left the emergency room and went to the medical floor his BiPAP was removed and he is currently saturating 95% on room air. He was also given a 2 g IV loading dose once of magnesium sulfate. He also had a bladder scan done. Left Chest Pain Score (Numeric/FACES): 6 - Related Data Allergies/Adverse Reactions: Allergies Allergy/AdvReac Type Severity Reaction Status Date / Time shellfish derived Allergy Hives Verified 01/10/21 19:02 Home Medications: Home Meds Fexofenadine/Pseudoephedrine [Fexofenadine-PSE ER 180-240] 1 each PO DAILY PRN 07/19/13 [History] Fluticasone Propionate [Flonase] 2 spray NASBOTH DAILY PRN 07/19/13 [History] Levothyroxine [Synthroid] 137 mcg PO ACBRK 02/23/14 [History] traZODone HCl [Trazodone HCl] 50 mg PO BEDTIME PRN 02/24/14 [History] Apixaban [Eliquis] 5 mg PO BID 01/06/21 [History] Codeine/guaiFENesin [Robitussin AC] 10 ml PO Q6H PRN #240 ml 01/06/21 [Rx] Esomeprazole [NexIUM] 1 tab PO DAILY 01/06/21 [History] Sacubitril/Valsartan [Entresto 97 mg-103 mg Tablet] 97 - 103 mg PO DAILY 01/06/21 [History] Simvastatin 40 mg PO BEDTIME 01/06/21 [History] Torsemide 40 mg PO BID 01/06/21 [History] carvediloL [Carvedilol] 18.75 mg PO BID 01/06/21 [History] predniSONE [Prednisone] 50 mg PO DAILY #5 tablet 01/06/21 [Rx] predniSONE [Prednisone] 1 dose PO DAILY 01/10/21 [History] Albuterol Sulfate [Albuterol Sulfate HFA] 8.5 gm INH Q4H PRN #1 ea 01/11/21 [Rx] Cetirizine [ZyrTEC] 10 mg PO DAILY #14 tab 01/11/21 [Rx] Citalopram Hydrobromide [Celexa] 40 mg PO DAILY 01/11/21 [History] Montelukast [Singulair] 10 mg PO DAILY #14 tab 01/11/21 [Rx] Spironolactone [Aldactone] 12.5 mg PO DAILY 01/11/21 [History] predniSONE [Prednisone] 40 mg PO DAILY 5 Days #10 tablet 01/11/21 [Rx] Past Medical History HEENT History: Reports: None Cardiovascular History: Reports: Afib, Cardiomyopathy Respiratory History: Reports: None Gastrointestinal History: Reports: None Musculoskeletal History: Reports: None Neurological History: Reports: None Psychiatric History: Reports: None Endocrine/Metabolic History: Reports: None Hematologic History: Reports: None Immunologic History: Reports: None Oncologic (Cancer) History: Reports: None Dermatologic History: Reports: None - Infectious Disease History Infectious Disease History: Reports: None - Past Surgical History Head Surgeries/Procedures: Reports: None HEENT Surgical History: Reports: None Cardiovascular Surgical History: Reports: AICD, Cardiac Ablation Oncologic Surgical History: Reports: None Social & Family History - Family History HEENT: Reports: None - Tobacco Use Tobacco Use Status *Q: Never Tobacco User - Caffeine Use Caffeine Use: Reports: Coffee - Recreational Drug Use Recreational Drug Use: No H&P Review of Systems - Review of Systems: Review Of Systems: See Below General: Reports: Fever, Fatigue. Denies: Chills, Weakness HEENT: Denies: Headaches, Visual Changes Pulmonary: Reports: Shortness of Breath, Cough Cardiovascular: Reports: Chest Pain, Dyspnea on Exertion, Orthopnea. Denies: Palpitations Gastrointestinal: Denies: Abdominal Pain, Constipation, Diarrhea Genitourinary: Denies: Dysuria Exam - Exam Exam: See Below - Vital Signs Vital Signs: Last Vital Signs Temp 98.2 F 01/10/21 16:14 Pulse 77 01/10/21 16:45 Resp 18 01/10/21 16:45 BP 107/68 01/10/21 16:45 Pulse Ox 95 01/10/21 16:45 Weight: 215 kg - Exam General: Alert, Oriented, Cooperative HEENT: Other (Oral mucosa dry) Neck: Trachea Midline Lungs: Wheezing Cardiovascular: Irregular Rhythm GI/Abdominal Exam: Normal Bowel Sounds, Soft, Non-Tender Extremities: Pedal Edema - Patient Data Lab Results Last 24 hrs: Laboratory Results - last 24 hr 01/10/21 01/10/21 01/10/21 Range/Units 09:12 09:12 09:12 WBC 10.41 (4.0-11.0) K/uL RBC 4.48 L (4.50-5.90) M/uL Hgb 14.7 (13.0-17.0) g/dL Hct 42.7 (38.0-50.0) % MCV 95.3 (80.0-98.0) fL MCH 32.8 H (27.0-32.0) pg MCHC 34.4 (31.0-37.0) g/dL RDW Std Deviation 46.3 (28.0-62.0) fl RDW Coeff of Yassine 13 (11.0-15.0) % Plt Count 190 (150-400) K/uL MPV 10.50 (7.40-12.00) fL Neut % (Auto) 81.0 H (48.0-80.0) % Lymph % (Auto) 8.4 L (16.0-40.0) % [place] % (Auto) 10.5 (0.0-15.0) % Eos % (Auto) 0.1 (0.0-7.0) % Baso % (Auto) 0.0 (0.0-1.5) % Neut # (Auto) 8.4 H (1.4-5.7) K/uL Lymph # (Auto) 0.9 (0.6-2.4) K/uL [place] # (Auto) 1.1 H (0.0-0.8) K/uL Eos # (Auto) 0.0 (0.0-0.7) K/uL Baso # (Auto) 0.0 (0.0-0.1) K/uL Nucleated RBC % 0.0 /100WBC Nucleated RBCs # 0 K/uL ABG pH (7.35-7.45) ABG pCO2 (35-45) mmHG ABG pO2 (80-105) mmHG ABG HCO3 (22-26) mEq/L ABG Total CO2 (23-27) mmol/L ABG Base Excess (-2.0-3.0) Sodium 137 (136-148) mmol/L Potassium 4.0 (3.5-5.1) mmol/L Chloride 100 (98-107) mmol/L Carbon Dioxide 27.3 (21.0-32.0) mmol/L BUN 53 H (7.0-18.0) mg/dL Creatinine 1.8 H (0.8-1.3) mg/dL Est Cr Clr Drug Dosing 39.99 mL/min Estimated GFR (MDRD) 37.6 ml/min Glucose 410 H (74-106) mg/dL Calcium 7.9 L (8.5-10.1) mg/dL Magnesium 2.1 (1.8-2.4) mg/dL Total Bilirubin 0.5 (0.2-1.0) mg/dL AST 28 (15-37) IU/L ALT 48 (14-63) IU/L Alkaline Phosphatase 77 (46-116) U/L Troponin I < 0.050 (0.000-0.056) ng/mL B-Natriuretic Peptide (<100) PG/ML Total Protein 6.8 (6.4-8.2) g/dL Albumin 3.1 L (3.4-5.0) g/dL Globulin 3.7 (2.6-4.0) g/dL Albumin/Globulin Ratio 0.8 L (0.9-1.6) SARS-CoV-2 RNA (GOPAL) POSITIVE H (NEGATIVE) 01/10/21 01/10/21 Range/Units 09:12 12:25 WBC (4.0-11.0) K/uL RBC (4.50-5.90) M/uL Hgb (13.0-17.0) g/dL Hct (38.0-50.0) % MCV (80.0-98.0) fL MCH (27.0-32.0) pg MCHC (31.0-37.0) g/dL RDW Std Deviation (28.0-62.0) fl RDW Coeff of Yassine (11.0-15.0) % Plt Count (150-400) K/uL MPV (7.40-12.00) fL Neut % (Auto) (48.0-80.0) % Lymph % (Auto) (16.0-40.0) % [place] % (Auto) (0.0-15.0) % Eos % (Auto) (0.0-7.0) % Baso % (Auto) (0.0-1.5) % Neut # (Auto) (1.4-5.7) K/uL Lymph # (Auto) (0.6-2.4) K/uL [place] # (Auto) (0.0-0.8) K/uL Eos # (Auto) (0.0-0.7) K/uL Baso # (Auto) (0.0-0.1) K/uL Nucleated RBC % /100WBC Nucleated RBCs # K/uL ABG pH 7.46 H (7.35-7.45) ABG pCO2 39 (35-45) mmHG ABG pO2 71 L (80-105) mmHG ABG HCO3 28 H (22-26) mEq/L ABG Total CO2 24.1 (23-27) mmol/L ABG Base Excess 3.4 H (-2.0-3.0) Sodium (136-148) mmol/L Potassium (3.5-5.1) mmol/L Chloride (98-107) mmol/L Carbon Dioxide (21.0-32.0) mmol/L BUN (7.0-18.0) mg/dL Creatinine (0.8-1.3) mg/dL Est Cr Clr Drug Dosing mL/min Estimated GFR (MDRD) ml/min Glucose (74-106) mg/dL Calcium (8.5-10.1) mg/dL Magnesium (1.8-2.4) mg/dL Total Bilirubin (0.2-1.0) mg/dL AST (15-37) IU/L ALT (14-63) IU/L Alkaline Phosphatase (46-116) U/L Troponin I (0.000-0.056) ng/mL B-Natriuretic Peptide 552 H (<100) PG/ML Total Protein (6.4-8.2) g/dL Albumin (3.4-5.0) g/dL Globulin (2.6-4.0) g/dL Albumin/Globulin Ratio (0.9-1.6) SARS-CoV-2 RNA (GOPAL) (NEGATIVE) Result Diagrams: 01/10/21 09:12 01/10/21 09:12 Sepsis Event Note - Focused Exam Vital Signs: Vital Signs Temp Pulse Resp BP Pulse Ox 01/10/21 16:45 77 18 107/68 95 01/10/21 16:14 98.2 F 82 20 111/67 93 L 01/10/21 15:53 74 20 105/63 94 L 01/10/21 15:01 82 102/66 93 L 01/10/21 15:00 98.2 F 78 18 103/68 93 L 01/10/21 14:13 84 20 102/69 96 01/10/21 13:35 98.2 F 78 18 105/66 95 01/10/21 13:20 98.2 F 71 18 101/62 94 L 01/10/21 12:45 98.2 F 91 20 97/54 L 94 L 01/10/21 12:11 98.2 F 86 18 93/52 L 94 L 01/10/21 12:03 98.2 F 84 20 87/57 L 95 01/10/21 11:07 73 96/60 94 L 01/10/21 10:09 81 102/59 L 94 L 01/10/21 09:41 98.2 F 80 20 96/52 L 94 L 01/10/21 09:21 97.1 F 71 16 106/60 95 - Problem List (1) Hypothyroidism SNOMED Code(s): 35459014 ICD Code: E03.9 - HYPOTHYROIDISM, UNSPECIFIED Status: Acute (2) GERD (gastroesophageal reflux disease) SNOMED Code(s): 587126922 ICD Code: K21.9 - GASTRO-ESOPHAGEAL REFLUX DISEASE WITHOUT ESOPHAGITIS Status: Acute (3) CHRIS (acute kidney injury) SNOMED Code(s): 68568205, 99081924 ICD Code: N17.9 - ACUTE KIDNEY FAILURE, UNSPECIFIED Status: Acute (4) COVID SNOMED Code(s): 982613003 ICD Code: U07.1 - COVID-19 Status: Acute (5) Atypical chest pain SNOMED Code(s): 017070555 ICD Code: R07.89 - OTHER CHEST PAIN Status: Acute (6) Cardiomyopathy SNOMED Code(s): 37984005 ICD Code: I42.9 - CARDIOMYOPATHY, UNSPECIFIED Status: Acute Problem List Initiated/Reviewed/Updated: Yes Orders Last 24hrs: Active Orders 24 hr Category Date Time Status Admission Status [Patient Status] [ADT] Stat ADT 01/10/21 16:37 Active Ambulate [RC] ASDIRECTED Care 01/10/21 17:59 Active Bladder Scan [RC] ASDIRECTED Care 01/10/21 11:16 Active Cardiac Monitoring [RC] . DIRECTED Care 01/10/21 09:07 Active Oxygen Therapy [RC] PRN Care 01/10/21 18:00 Active Pulse Oximetry [RC] ASDIRECTED Care 01/10/21 09:07 Active RT Aerosol Therapy [RC] ASDIRECTED Care 01/10/21 10:32 Active RT Aerosol Therapy [RC] ASDIRECTED Care 01/10/21 11:17 Active RT Aerosol Therapy [RC] ASDIRECTED Care 01/10/21 12:14 Active RT Aerosol Therapy [RC] ASDIRECTED Care 01/10/21 12:14 Active RT Aerosol Therapy [RC] ASDIRECTED Care 01/10/21 18:03 Active VTE/DVT Education [RC] PER UNIT ROUTINE Care 01/10/21 18:00 Active Vital Signs [RC] Q4H Care 01/10/21 18:00 Active Heart Healthy Diet [DIET] Diet 01/10/21 Dinner Active BMP [BASIC METABOLIC PANEL,BMP] [CHEM] AM Lab 01/11/21 05:11 Ordered CBC WITH AUTO DIFF [HEME] AM Lab 01/11/21 05:11 Ordered MAGNESIUM [CHEM] AM Lab 01/11/21 05:11 Ordered PHOSPHORUS [CHEM] AM Lab 01/11/21 05:11 Ordered Acetaminophen [TylenoL] Med 01/10/21 17:59 Active 650 mg PO Q4H PRN Albuterol/Ipratropium [DuoNeb 3.0-0.5 MG/3 ML] Med 01/10/21 22:00 Active 3 ml NEB Q4HRRT Apixaban [Eliquis] Med 01/10/21 21:00 Active 5 mg PO BID Codeine/guaiFENesin [Robitussin AC] Med 01/10/21 18:07 Active 10 ml PO Q6H PRN Esomeprazole [NexIUM] Med 01/11/21 09:00 Active 1 tab PO DAILY Fexofenadine/Pseudoephedrine [Fexofenadine-PSE ER 180- Med 01/10/21 18:07 Active 240] 1 each PO DAILY PRN Fluticasone Propionate [Flonase] Med 01/10/21 18:07 Active 16 gm NASBOTH DAILY PRN Lactated Ringers [Ringers, Lactated] 1,000 ml Med 01/10/21 11:00 Active IV ASDIRECTED Levofloxacin/Dextrose 5%-Water [Levaquin in D5W 750 MG/ Med 01/10/21 18:15 A ctive 150 ML] 750 mg Premix Bag 1 bag IV Q24H Levothyroxine [Synthroid] Med 01/11/21 07:30 Active 137 mcg PO ACBRK Simvastatin [Zocor] Med 01/11/21 09:00 Active 40 mg PO DAILY Sodium Chloride 0.9% [Saline Flush] Med 01/10/21 09:07 Active 10 ml FLUSH ASDIRECTED PRN Sodium Chloride 0.9% [Saline Flush] Med 01/10/21 09:07 Active 2.5 ml FLUSH ASDIRECTED PRN Torsemide [Demadex] Med 01/10/21 21:00 Active 40 mg PO BID carvediloL [Coreg] Med 01/10/21 21:00 Active 18.75 mg PO BID dexAMETHasone Med 01/11/21 09:00 Active 6 mg PO DAILY traZODone Med 01/10/21 18:07 Active 50 mg PO BEDTIME PRN Saline Lock Insert [OM.PC] Stat Oth 01/10/21 09:07 Ordered Resuscitation Status Routine Resus Stat 01/10/21 17:59 Ordered Medication Orders Acetaminophen (Acetaminophen 325 Mg Tab) 650 mg PO Q4H PRN PRN Reason: Pain (Mild 1-3)/fever Albuterol/Ipratropium (Albuterol/Ipratropium 3.0-0.5 Mg/3 Ml Neb Soln) 3 ml NEB Q4HRRT [facility] Apixaban (Apixaban 5 Mg Tab) 5 mg PO BID [facility] Carvedilol (Carvedilol 12.5 Mg Tab) 18.75 mg PO BID [facility] Dexamethasone (Dexamethasone 4 Mg Tab) 6 mg PO DAILY [facility] Fluticasone Propionate (Fluticasone Propionate Nasal [place] 16 Gm Bottle) 16 gm NASBOTH DAILY PRN PRN Reason: Nasal Dryness Guaifenesin/Codeine Phosphate (Codeine/Guaifenesin 10-100 Mg/5 Ml Syrup 5 Ml Cup) 10 ml PO Q6H PRN PRN Reason: Cough Lactated Ringer's (Ringers, Lactated) 1,000 mls @ 999 mls/hr IV ASDIRECTED [facility] Last Admin: 01/10/21 11:04 Dose: 999 mls/hr Documented by: MARSHAL Levofloxacin/Dextrose 750 mg/ (Premix) 150 mls @ 100 mls/hr IV Q24H [facility] Levothyroxine Sodium (Levothyroxine 50 Mcg Tab) 137 mcg PO ACBRK [facility] Non-Formulary Medication (Esomeprazole [Nexium]) 1 tab PO DAILY [facility] Non-Formulary Medication (Fexofenadine/Pseudoephedrine [Fexofenadine-Pse Er 180- 240]) 1 each PO DAILY PRN PRN Reason: Allergies Simvastatin (Simvastatin 40 Mg Tab) 40 mg PO DAILY [facility] Sodium Chloride (Sodium Chloride 0.9% 10 Ml Syringe) 10 ml FLUSH ASDIRECTED PRN PRN Reason: Keep Vein Open Last Admin: 01/10/21 10:49 Dose: 10 ml Documented by: MARSHAL Sodium Chloride (Sodium Chloride 0.9% 2.5 Ml Syringe) 2.5 ml FLUSH ASDIRECTED PRN PRN Reason: Keep Vein Open Last Admin: 01/10/21 10:49 Dose: 2.5 ml Documented by: MARSHAL Torsemide (Torsemide 20 Mg Tab) 40 mg PO BID [facility] Trazodone HCl (Trazodone 50 Mg Tab) 50 mg PO BEDTIME PRN PRN Reason: Sleep Assessment/Plan Comment:: Admit the patient to the medical floor, vitals per unit routine, heart healthy diet, activity up ad cruz., GI prophylaxis with home Nexium, no DVT prophylaxis at this time, aspirin use as a blood thinner 1. COVID-19 pneumonia -Patient was given 6 mg of dexamethasone via IV route once in the ER, is now on dexamethasone 6 mg per oral route once a day -Patient was initially on BiPAP, but now is saturating 95% on room air, will supply oxygen as needed, magnesium and phosphorus levels ordered -Duo nebulizer treatments are on board, 3 duo nebulizer treatments were already given in the ER -For cough, Robitussin AC 10 mL every 6 hours as needed 2. Acute kidney injury -Patient was given a lactated Ringer's bolus in the emergency room -Patient can eat and drink and has been counseled on increasing his oral hydration to decrease his creatinine level -Daily CMP levels have been ordered in order to assess his kidney function 3. Chest x-ray showing atelectasis versus pneumonia -Patient has been put on levofloxacin/dextrose 750 mg via IV route every 24 hours -Daily CBC to check for any changes in white blood cell count and other blood parameters 4. History of cardiomyopathy -Continue the patient's home torsemide 40 mg per oral route twice a day -Continue the patient's simvastatin 40 mg per oral route once a day 5. History of atrial fibrillation -Continue the patient's Eliquis 5 mg per oral route twice a day scheduled -Continue the patient's carvedilol 6. History of seasonal allergy -Continue fexofenadine/pseudoephedrine (180-240) 1 each per day via oral route <Eloy Villanueva - Last Filed: 01/12/21 15:43> H&P History of Present Illness - General Admit Problem/Dx: Admission Diagnosis/Problem Admission Diagnosis/Problem Hypoxia Exam - Vital Signs Vital Signs: Last Vital Signs Temp 36.4 C 01/11/21 14:00 Pulse 71 01/11/21 14:00 Resp 18 01/11/21 14:00 BP 109/61 01/11/21 14:00 Pulse Ox 95 01/11/21 06:00 - Patient Data Result Diagrams: 01/11/21 05:50 01/11/21 05:50 Assessment/Plan Comment:: I performed a history and physical exam of the patient and discussed management with resident. I have reviewed the residents note and agree with documented findings and plan unless otherwise specified in my note.
[2021-01-10] MEDS: Carvedilol 12.5 MG Tab PO SCH (21:02)
[2021-01-10] MEDS: Apixaban 5 MG Tab PO SCH (21:04)
[2021-01-10] MEDS: Torsemide 20 MG Tab PO SCH (21:04)
[2021-01-10] MEDS: Albuterol/Ipratropium 3.0-0.5 MG/3 ML Neb Soln NEB SCH (21:38)
[2021-01-11] MEDS: Albuterol/Ipratropium 3.0-0.5 MG/3 ML Neb Soln NEB SCH ×3 (03:15→10:02)
[2021-01-11] MEDS ORDERED: Levothyroxine 50 MCG Tab PO SCH (07:30)
[2021-01-11 07:32] LABS: CARBON DIOXIDE,CO2 27.5 mmol/L (21.0-32.0); POTASSIUM,K 4.4 mmol/L (3.5-5.1)
[2021-01-11] MEDS ORDERED: Loratadine/Pseudoephedrine 5-120 MG Tab.ER PO PRN (07:45)
[2021-01-11] MEDS: Carvedilol 12.5 MG Tab PO SCH (08:23)
[2021-01-11] MEDS: Apixaban 5 MG Tab PO SCH (08:26)
[2021-01-11] MEDS: Torsemide 20 MG Tab PO SCH (08:27)
[2021-01-11] MEDS ORDERED: Simvastatin 40 MG Tab PO SCH (09:00)
[2021-01-11] MEDS ORDERED: Dexamethasone 4 MG Tab PO SCH (09:00)
[2021-01-11] MEDS ORDERED: Omeprazole 20 MG Cap.CR PO SCH (11:30)
[2021-01-11 14:05] VITALS: BP 109/61; PULSE 71
--- NOTE | 2021-01-11 14:59 | PCM.DCSUM1 ---
<Jude Urias - Last Filed: 01/11/21 14:39> Discharge Summary - Hospital Course Free Text/Narrative:: The patient is a 70-year-old male, on day 2 of service, with a significant past medical history of atrial fibrillation, cardiomyopathy, seasonal allergies, and hyperlipidemia who was admitted to the medical floor due to shortness of breath, chest pain, and cough all pointing towards a diagnosis of seasonal allergies/asthma. Simultaneously, these symptoms could have also been caused by the patient's cardiomyopathy and recent diagnosis of COVID-19 pneumonia. While the patient was in hospital he was also suffering from acute kidney injury. For his CHRIS he received a Lactated Ringer's bolus in the emergency room and was encouraged to increase his oral hydration in order to decrease his creatinine levels. For the patient's history of seasonal allergies along with new onset asthma, the patient was given fexofenadine/pseudoephedrine. This seems to been the main issue why the patient was experiencing his symptoms. On discharge he will be provided prednisone via oral route, montelukast, Zyrtec, and an albuterol inhaler for whenever the symptoms potentially arise. For the patient's COVID-19 pneumonia diagnosis, while in hospital the patient received 6 mg of dexametha sone via IV route once in the ER and later was transitioned to oral route once a day. The patient is breathing room air and saturating well above 90% and did not require any oxygen supplementation besides BiPAP which was initially placed in the ER. For cough the patient was given Robitussin-AC 10 mL every 6 hours as needed. The patient also while in the hospital was on levofloxacin/dextrose 750 mg via IV route for pneumonia versus atelectasis which was seen on chest x-ray. For his history of cardiomyopathy the patient had torsemide on board but it was held due to the fact that his kidney function was declined and we were trying to preserve fluids within the body. For the patient's hyperlipidemia we continued simvastatin 40 mg per oral route which was the patient's home dose. For the patient's history of atrial fibrillation, in hospital we continued his Eliquis 5 mg per oral route twice a day as well as carvedilol. On interview with the patient today, he had no complaints and said his cough and shortness of breath were much improved and that he no longer had any chest discomfort. The patient is now ready to be discharged. - Discharge Data Discharge Date: 01/11/21 Discharge Disposition: Home, Self-Care 01 Condition: Stable - Referral to Home Health Primary Care Physician: PCP None - Discharge Diagnosis/Problem(s) (1) Hypothyroidism SNOMED Code(s): 09397972 ICD Code: E03.9 - HYPOTHYROIDISM, UNSPECIFIED Status: Acute (2) GERD (gastroesophageal reflux disease) SNOMED Code(s): 785439257 ICD Code: K21.9 - GASTRO-ESOPHAGEAL REFLUX DISEASE WITHOUT ESOPHAGITIS Status: Acute (3) CHRIS (acute kidney injury) SNOMED Code(s): 67800540, 42215840 ICD Code: N17.9 - ACUTE KIDNEY FAILURE, UNSPECIFIED Status: Acute (4) COVID SNOMED Code(s): 252414374 ICD Code: U07.1 - COVID-19 Status: Acute (5) Atypical chest pain SNOMED Code(s): 034490410 ICD Code: R07.89 - OTHER CHEST PAIN Status: Acute (6) Cardiomyopathy SNOMED Code(s): 37765178 ICD Code: I42.9 - CARDIOMYOPATHY, UNSPECIFIED Status: Acute - Patient Instructions Diet: Heart Healthy Diet Activity: As Tolerated Showering/Bathing: May Shower Other/Special Instructions: -If you experience chest pain, palpitations, or respiratory distress, come back to the hospital. -Be compliant with medications. -Follow up with PCP in 1-2 weeks - Discharge Plan Prescriptions/Med Rec: Albuterol Sulfate [Albuterol Sulfate HFA] 8.5 gm INH Q4H PRN #1 ea PRN Reason: Shortness Of Breath predniSONE [Prednisone] 40 mg PO DAILY 5 Days #10 tablet Montelukast [Singulair] 10 mg PO DAILY #14 tab Cetirizine [ZyrTEC] 10 mg PO DAILY #14 tab Home Medications: Home Meds Fexofenadine/Pseudoephedrine [Fexofenadine-PSE ER 180-240] 1 each PO DAILY PRN 07/19/13 [History] Fluticasone Propionate [Flonase] 2 spray NASBOTH DAILY PRN 07/19/13 [History] Levothyroxine [Synthroid] 137 mcg PO ACBRK 02/23/14 [History] traZODone HCl [Trazodone HCl] 50 mg PO BEDTIME PRN 02/24/14 [History] Apixaban [Eliquis] 5 mg PO BID 01/06/21 [History] Codeine/guaiFENesin [Robitussin AC] 10 ml PO Q6H PRN #240 ml 01/06/21 [Rx] Esomeprazole [NexIUM] 1 tab PO DAILY 01/06/21 [History] Sacubitril/Valsartan [Entresto 97 mg-103 mg Tablet] 97 - 103 mg PO DAILY 01/06/21 [History] Simvastatin 40 mg PO BEDTIME 01/06/21 [History] Torsemide 40 mg PO BID 01/06/21 [History] carvediloL [Carvedilol] 18.75 mg PO BID 01/06/21 [History] predniSONE [Prednisone] 50 mg PO DAILY #5 tablet 01/06/21 [Rx] predniSONE [Prednisone] 1 dose PO DAILY 01/10/21 [History] Albuterol Sulfate [Albuterol Sulfate HFA] 8.5 gm INH Q4H PRN #1 ea 01/11/21 [Rx] Cetirizine [ZyrTEC] 10 mg PO DAILY #14 tab 01/11/21 [Rx] Citalopram Hydrobromide [Celexa] 40 mg PO DAILY 01/11/21 [History] Montelukast [Singulair] 10 mg PO DAILY #14 tab 01/11/21 [Rx] Spironolactone [Aldactone] 12.5 mg PO DAILY 01/11/21 [History] predniSONE [Prednisone] 40 mg PO DAILY 5 Days #10 tablet 01/11/21 [Rx] Patient Handouts: Montelukast oral tablets, COVID-19, Albuterol inhalation aerosol, Cetirizine tablets, Prednisone tablets Referrals: Mary Wyman MD [Physician] - 01/23/21 1:00 pm (Your follow up appointment is with Lulu Escalera at [facility]. Please arrive 15 minutes early with your ID and wearing a face covering.) - Discharge Summary/Plan Comment DC Time >30 min.: Yes Total # of Minutes for Discharge Time: 35 minutes - Review of Systems General: Denies: Fever, Weakness, Fatigue HEENT: Denies: Headaches, Sore Throat Pulmonary: Reports: Cough. Denies: Shortness of Breath, Sputum Cardiovascular: Denies: Chest Pain, Palpitations, Dyspnea on Exertion Gastrointestinal: Denies: Abdominal Pain Genitourinary: Denies: Dysuria - Patient Data Vitals - Most Recent: Last Vital Signs Temp 97.5 F 01/11/21 14:00 Pulse 71 01/11/21 14:00 Resp 18 01/11/21 14:00 BP 109/61 01/11/21 14:00 Pulse Ox 95 01/11/21 06:00 Weight - Most Recent: 97.522 kg I&O - Last 24 hours: Intake & Output 01/10/21 01/11/21 01/11/21 22:59 06:59 14:59 Output Total 300 Balance -300 Lab Results - Last 24 hrs: Laboratory Results - last 24 hr 01/11/21 01/11/21 Range/Units 05:50 05:50 WBC 10.73 (4.0-11.0) K/uL RBC 4.43 L (4.50-5.90) M/uL Hgb 14.4 (13.0-17.0) g/dL Hct 41.6 (38.0-50.0) % MCV 93.9 (80.0-98.0) fL MCH 32.5 H (27.0-32.0) pg MCHC 34.6 (31.0-37.0) g/dL RDW Std Deviation 46.0 (28.0-62.0) fl RDW Coeff of Yassine 13 (11.0-15.0) % Plt Count 198 (150-400) K/uL MPV 10.70 (7.40-12.00) fL Neut % (Auto) 86.1 H (48.0-80.0) % Lymph % (Auto) 5.6 L (16.0-40.0) % Bath % (Auto) 8.3 (0.0-15.0) % Eos % (Auto) 0.0 (0.0-7.0) % Baso % (Auto) 0.0 (0.0-1.5) % Neut # (Auto) 9.2 H (1.4-5.7) K/uL Lymph # (Auto) 0.6 (0.6-2.4) K/uL Bath # (Auto) 0.9 H (0.0-0.8) K/uL Eos # (Auto) 0.0 (0.0-0.7) K/uL Baso # (Auto) 0.0 (0.0-0.1) K/uL Nucleated RBC % 0.0 /100WBC Nucleated RBCs # 0 K/uL Sodium 139 (136-148) mmol/L Potassium 4.4 (3.5-5.1) mmol/L Chloride 101 (98-107) mmol/L Carbon Dioxide 27.5 (21.0-32.0) mmol/L BUN 46 H (7.0-18.0) mg/dL Creatinine 1.7 H (0.8-1.3) mg/dL Est Cr Clr Drug Dosing 42.34 mL/min Estimated GFR (MDRD) 40.2 ml/min Glucose 303 H (74-106) mg/dL Calcium 8.4 L (8.5-10.1) mg/dL Phosphorus 2.8 (2.6-4.7) mg/dL Magnesium 2.5 H (1.8-2.4) mg/dL Med Orders - Current: Current Medications Acetaminophen (Acetaminophen 325 Mg Tab) 650 mg PO Q4H PRN PRN Reason: Pain (Mild 1-3)/fever Last Admin: 01/11/21 05:05 Dose: 650 mg Documented by: Albuterol/Ipratropium (Albuterol/Ipratropium 3.0-0.5 Mg/3 Ml Neb Soln) 3 ml NEB Q4HRRT [facility] Last Admin: 01/11/21 10:02 Dose: 3 ml Documented by: Apixaban (Apixaban 5 Mg Tab) 5 mg PO BID [facility] Last Admin: 01/11/21 08:26 Dose: 5 mg Documented by: Carvedilol (Carvedilol 12.5 Mg Tab) 18.75 mg PO BID [facility] Last Admin: 01/11/21 08:23 Dose: 18.75 mg Documented by: Dexamethasone (Dexamethasone 4 Mg Tab) 6 mg PO DAILY [facility] Last Admin: 01/11/21 10:43 Dose: 6 mg Documented by: Fluticasone Propionate (Fluticasone Propionate Nasal [place] 16 Gm Bottle) 16 gm NASBOTH DAILY PRN PRN Reason: Nasal Dryness Guaifenesin/Codeine Phosphate (Codeine/Guaifenesin 10-100 Mg/5 Ml Syrup 5 Ml Cup) 10 ml PO Q6H PRN PRN Reason: Cough Levofloxacin/Dextrose 750 mg/ (Premix) 150 mls @ 100 mls/hr IV Q48H [facility] Last Admin: 01/10/21 21:38 Dose: 100 mls/hr Documented by: Levothyroxine Sodium (Levothyroxine 50 Mcg Tab) 137 mcg PO ACBRK [facility] Last Admin: 01/11/21 08:24 Dose: 137 mcg Documented by: Loratadine/Pseudoephedrine Sulfate (Loratadine/Pseudoephedrine 5-120 Mg Tab.Er) 1 tab PO Q12H PRN PRN Reason: Allergies Omeprazole (Omeprazole 20 Mg Cap.Cr) 20 mg PO ACBREAKFAST [facility] Last Admin: 01/11/21 10:44 Dose: 20 mg Documented by: Simvastatin (Simvastatin 40 Mg Tab) 40 mg PO DAILY [facility] Last Admin: 01/11/21 08:26 Dose: 40 mg Documented by: Sodium Chloride (Sodium Chloride 0.9% 10 Ml Syringe) 10 ml FLUSH ASDIRECTED PRN PRN Reason: Keep Vein Open Last Admin: 01/10/21 10:49 Dose: 10 ml Documented by: Sodium Chloride (Sodium Chloride 0.9% 2.5 Ml Syringe) 2.5 ml FLUSH ASDIRECTED PRN PRN Reason: Keep Vein Open Last Admin: 01/10/21 10:49 Dose: 2.5 ml Documented by: Torsemide (Torsemide 20 Mg Tab) 40 mg PO BID [facility] Last Admin: 01/11/21 08:27 Dose: Not Given Documented by: Trazodone HCl (Trazodone 50 Mg Tab) 50 mg PO BEDTIME PRN PRN Reason: Sleep Discontinued Medications Albuterol (Albuterol 0.083% 2.5 Mg/3 Ml Neb Soln) Confirm Administered Dose 2.5 mg .ROUTE .STK-MED ONE Stop: 01/10/21 15:45 Last Admin: 01/10/21 15:45 Dose: 2.5 mg Documented by: Albuterol/Ipratropium (Albuterol/Ipratropium 3.0-0.5 Mg/3 Ml Neb Soln) 3 ml NEB ONETIME ONE Stop: 01/10/21 10:33 Last Admin: 01/10/21 10:49 Dose: 3 ml Documented by: Albuterol/Ipratropium (Albuterol/Ipratropium 3.0-0.5 Mg/3 Ml Neb Soln) 3 ml NEB ONETIME ONE Stop: 01/10/21 11:18 Last Admin: 01/10/21 11:21 Dose: 3 ml Documented by: Albuterol/Ipratropium (Albuterol/Ipratropium 3.0-0.5 Mg/3 Ml Neb Soln) 3 ml NEB ONETIME ONE Stop: 01/10/21 12:15 Last Admin: 01/10/21 12:39 Dose: 3 ml Documented by: Albuterol/Ipratropium (Albuterol/Ipratropium 3.0-0.5 Mg/3 Ml Neb Soln) 3 ml NEB ONETIME ONE Stop: 01/10/21 12:15 Last Admin: 01/10/21 12:39 Dose: 3 ml Documented by: Aspirin (Aspirin 81 Mg Tab.Chew) 324 mg PO ONETIME ONE Stop: 01/10/21 09:07 Last Admin: 01/10/21 09:17 Dose: 324 mg Documented by: Dexamethasone (Dexamethasone 4 Mg/Ml Sdv) 6 mg IVPUSH ONETIME ONE Stop: 01/10/21 13:07 Last Admin: 01/10/21 13:14 Dose: 6 mg Documented by: Lactated Ringer's (Ringers, Lactated) 1,000 mls @ 999 mls/hr IV ASDIRECTED [facility] Stop: 01/11/21 00:00 Last Admin: 01/10/21 11:04 Dose: 999 mls/hr Documented by: Magnesium Sulfate (Magnesium Sulfate In Water 2 Gm/50 Ml) 50 mls @ 100 mls/hr IV NOW ONE Stop: 01/10/21 12:44 Last Admin: 01/10/21 12:39 Dose: 100 mls/hr Documented by: Levofloxacin/Dextrose 750 mg/ (Premix) 150 mls @ 100 mls/hr IV Q24H [facility] Last Admin: 01/11/21 01:50 Dose: Not Given Documented by: Non-Formulary Medication (Fexofenadine/Pseudoephedrine [Fexofenadine-Pse Er 180- 240]) 1 each PO DAILY PRN PRN Reason: Allergies - Exam General: Reports: Alert, Oriented, Cooperative HEENT: Reports: Mucous Membr. Moist/[place] Neck: Reports: Trachea Midline Lungs: Reports: Clear to Auscultation, Normal Respiratory Effort Cardiovascular: Reports: Regular Rate, Regular Rhythm, No Murmurs GI/Abdominal Exam: Normal Bowel Sounds, Soft, Non-Tender, No Organomegaly <Eloy Villanueva - Last Filed: 01/12/21 15:41> Discharge Summary - Hospital Course Free Text/Narrative:: I have seen and evaluated the patient and agree with the residents note unless specified in my note - Referral to Home Health Primary Care Physician: PCP None - Patient Data Vitals - Most Recent: Last Vital Signs Temp 36.4 C 01/11/21 14:00 Pulse 71 01/11/21 14:00 Resp 18 01/11/21 14:00 BP 109/61 01/11/21 14:00 Pulse Ox 95 01/11/21 06:00 Med Orders - Current: Current Medications Discontinued Medications Acetaminophen (Acetaminophen 325 Mg Tab) 650 mg PO Q4H PRN PRN Reason: Pain (Mild 1-3)/fever Last Admin: 01/11/21 05:05 Dose: 650 mg Documented by: Albuterol (Albuterol 0.083% 2.5 Mg/3 Ml Neb Soln) Confirm Administered Dose 2.5 mg .ROUTE .STK-MED ONE Stop: 01/10/21 15:45 Last Admin: 01/10/21 15:45 Dose: 2.5 mg Documented by: Albuterol/Ipratropium (Albuterol/Ipratropium 3.0-0.5 Mg/3 Ml Neb Soln) 3 ml NEB ONETIME ONE Stop: 01/10/21 10:33 Last Admin: 01/10/21 10:49 Dose: 3 ml Documented by: Albuterol/Ipratropium (Albuterol/Ipratropium 3.0-0.5 Mg/3 Ml Neb Soln) 3 ml NEB ONETIME ONE Stop: 01/10/21 11:18 Last Admin: 01/10/21 11:21 Dose: 3 ml Documented by: Albuterol/Ipratropium (Albuterol/Ipratropium 3.0-0.5 Mg/3 Ml Neb Soln) 3 ml NEB ONETIME ONE Stop: 01/10/21 12:15 Last Admin: 01/10/21 12:39 Dose: 3 ml Documented by: Albuterol/Ipratropium (Albuterol/Ipratropium 3.0-0.5 Mg/3 Ml Neb Soln) 3 ml NEB ONETIME ONE Stop: 01/10/21 12:15 Last Admin: 01/10/21 12:39 Dose: 3 ml Documented by: Albuterol/Ipratropium (Albuterol/Ipratropium 3.0-0.5 Mg/3 Ml Neb Soln) 3 ml NEB Q4HRRT [facility] Last Admin: 01/11/21 10:02 Dose: 3 ml Documented by: Apixaban (Apixaban 5 Mg Tab) 5 mg PO BID [facility] Last Admin: 01/11/21 08:26 Dose: 5 mg Documented by: Aspirin (Aspirin 81 Mg Tab.Chew) 324 mg PO ONETIME ONE Stop: 01/10/21 09:07 Last Admin: 01/10/21 09:17 Dose: 324 mg Documented by: Carvedilol (Carvedilol 12.5 Mg Tab) 18.75 mg PO BID [facility] Last Admin: 01/11/21 08:23 Dose: 18.75 mg Documented by: Dexamethasone (Dexamethasone 4 Mg/Ml Sdv) 6 mg IVPUSH ONETIME ONE Stop: 01/10/21 13:07 Last Admin: 01/10/21 13:14 Dose: 6 mg Documented by: Dexamethasone (Dexamethasone 4 Mg Tab) 6 mg PO DAILY [facility] Last Admin: 01/11/21 10:43 Dose: 6 mg Documented by: Fluticasone Propionate (Fluticasone Propionate Nasal [place] 16 Gm Bottle) 16 gm NASBOTH DAILY PRN PRN Reason: Nasal Dryness Guaifenesin/Codeine Phosphate (Codeine/Guaifenesin 10-100 Mg/5 Ml Syrup 5 Ml Cup) 10 ml PO Q6H PRN PRN Reason: Cough Lactated Ringer's (Ringers, Lactated) 1,000 mls @ 999 mls/hr IV ASDIRECTED [facility] Stop: 01/11/21 00:00 Last Admin: 01/10/21 11:04 Dose: 999 mls/hr Documented by: Magnesium Sulfate (Magnesium Sulfate In Water 2 Gm/50 Ml) 50 mls @ 100 mls/hr IV NOW ONE Stop: 01/10/21 12:44 Last Admin: 01/10/21 12:39 Dose: 100 mls/hr Documented by: Levofloxacin/Dextrose 750 mg/ (Premix) 150 mls @ 100 mls/hr IV Q24H [facility] Last Admin: 01/11/21 01:50 Dose: Not Given Documented by: Levofloxacin/Dextrose 750 mg/ (Premix) 150 mls @ 100 mls/hr IV Q48H [facility] Last Admin: 01/10/21 21:38 Dose: 100 mls/hr Documented by: Levothyroxine Sodium (Levothyroxine 50 Mcg Tab) 137 mcg PO ACBRK [facility] Last Admin: 01/11/21 08:24 Dose: 137 mcg Documented by: Loratadine/Pseudoephedrine Sulfate (Loratadine/Pseudoephedrine 5-120 Mg Tab.Er) 1 tab PO Q12H PRN PRN Reason: Allergies Non-Formulary Medication (Fexofenadine/Pseudoephedrine [Fexofenadine-Pse Er 180- 240]) 1 each PO DAILY PRN PRN Reason: Allergies Omeprazole (Omeprazole 20 Mg Cap.Cr) 20 mg PO ACBREAKFAST [facility] Last Admin: 01/11/21 10:44 Dose: 20 mg Documented by: Simvastatin (Simvastatin 40 Mg Tab) 40 mg PO DAILY [facility] Last Admin: 01/11/21 08:26 Dose: 40 mg Documented by: Sodium Chloride (Sodium Chloride 0.9% 10 Ml Syringe) 10 ml FLUSH ASDIRECTED PRN PRN Reason: Keep Vein Open Last Admin: 01/10/21 10:49 Dose: 10 ml Documented by: Sodium Chloride (Sodium Chloride 0.9% 2.5 Ml Syringe) 2.5 ml FLUSH ASDIRECTED PRN PRN Reason: Keep Vein Open Last Admin: 01/10/21 10:49 Dose: 2.5 ml Documented by: Torsemide (Torsemide 20 Mg Tab) 40 mg PO BID [facility] Last Admin: 01/11/21 08:27 Dose: Not Given Documented by: Trazodone HCl (Trazodone 50 Mg Tab) 50 mg PO BEDTIME PRN PRN Reason: Sleep
== END 2021-01-11 15:45 | disposition home or self-care (01) | DRG 177 ==
LOC: MW.ED 09:02 → MW.MS 16:37
PROVIDERS: ADMIT Student in an Organized Health Care Education/Training Program; ATTEND Student in an Organized Health Care Education/Training Program
PROC: 5A09357 Assistance with Respiratory Ventilation, Less than 24 Consecutive Hours, Continuous Positive Airway Pressure (ICD-10-PCS; principal; 2021-01-10)
PROC: 3E0333Z Introduction of Anti-inflammatory into Peripheral Vein, Percutaneous Approach (ICD-10-PCS; 2021-01-10)
PROC: 3E0DX3Z Introduction of Anti-inflammatory into Mouth and Pharynx, External Approach (ICD-10-PCS; 2021-01-10)
DX: U07.1 COVID-19 (principal); J12.82 Pneumonia due to coronavirus disease 2019; N17.9 Acute kidney failure, unspecified; J45.901 Unspecified asthma with (acute) exacerbation; R06.03 Acute respiratory distress; E03.9 Hypothyroidism, unspecified; K21.9 Gastro-esophageal reflux disease without esophagitis; Z91.013 Allergy to seafood; I48.91 Unspecified atrial fibrillation; I42.9 Cardiomyopathy, unspecified; Z95.810 Presence of automatic (implantable) cardiac defibrillator; Z79.01 Long term (current) use of anticoagulants; Z79.890 Hormone replacement therapy; Z79.52 Long term (current) use of systemic steroids; Z79.899 Other long term (current) drug therapy; I50.9 Heart failure, unspecified
CPT/HCPCS: 36600; 71045; 80053; 82803; 83735; 83880; 84484; 85025; 93005; 94640 ×2; 96365; 96375; 99291; 99292; A9270; J1100; J3475; J7120; U0002; 36415; 80048; 84100; J1956; J7620-GY; J8540

== ENCOUNTER 2021-10-06 13:12 | Emergency (ER) | payer MEDICARE, OTHER ==
[2021-10-06] MEDS ORDERED: Aspirin 81 MG Tab.Chew PO ONE (13:14)
[2021-10-06] MEDS ORDERED: Morphine 4 MG/ML VIAL IVPUSH STA (13:29)
[2021-10-06] MEDS ORDERED: Ondansetron 4 MG/2 ML SDV IVPUSH ONE (13:29)
[2021-10-06 13:47] LABS: BLOOD UREA NITROGEN,BUN 34 mg/dL (7.0-18.0); CARBON DIOXIDE,CO2 26.2 mmol/L (21.0-32.0); CHLORIDE,CL 107 mmol/L (98-107); ESTIMATED GFR 43 mL/min (>60); GLUCOSE RANDOM 141 mg/dL (74-106); POTASSIUM,K 5.1 mmol/L (3.5-5.1); SODIUM,NA 141 mmol/L (136-148)
[2021-10-06 14:23] VITALS: PULSE 75
[2021-10-06 16:36] VITALS: BP 110/77
== END 2021-10-06 16:36 | disposition home or self-care (01) ==
LOC: MW.ED 13:12
DX: R07.9 Chest pain, unspecified (principal); M54.9 Dorsalgia, unspecified; I11.0 Hypertensive heart disease with heart failure; I50.9 Heart failure, unspecified; I48.91 Unspecified atrial fibrillation; E11.9 Type 2 diabetes mellitus without complications; Z20.822 Contact with and (suspected) exposure to COVID-19; Z91.013 Allergy to seafood; Z79.899 Other long term (current) drug therapy; Z79.01 Long term (current) use of anticoagulants; Z86.16 Personal history of COVID-19
CPT/HCPCS: 36415; 71045; 80053; 83880; 84484; 85025; 85610; 93005; 96374; 96375; 99285; A9270; J2270; J2405; U0002; 93010; 99284